=== PATIENT | female | born 1950 | race Caucasian/White ===

== ENCOUNTER 2016-08-29 16:57 | Emergency (ER) | payer OTHER ==
[~2016-08-29] VITALS: Ht 162.6 cm; Wt 75.0 kg
[~2016-08-29 16:57] MED LIST: CALCIUM + D 6001 TA1 PO; EPA1000 MG PO; HCTZ 25MG25 MG PO; LIPITOR80 MG PO; MOTRIN800 MG PO; NORCO 325 MG-51 TAB PO; POTASSIUM CH2 MEQ/ML PO; PRIL40 PO; SYNTHROID0.112 MG/T PO; TOPROL XL 50MG50 MG PO; VIT B; [UNRECOGNIZED DRUG - OTHER]
[2016-08-29 17:06] VITALS: BP 162/84; PULSE 75; TEMP 98.2
[2016-08-29] MEDS ORDERED: CEPHALEXIN500 M1 PO (18:35)
[2016-08-29] MEDS ORDERED: CLARITIN 1010 MG/TAB PO (18:58)
[2016-08-29] MEDS ORDERED: MELATONIN0.3 MG (19:00)
[2016-08-29] MEDS ORDERED: CARDIZEM CD 18180 MG PO (19:01)
[2016-08-29] MEDS ORDERED: CRESTOR20 MG PO (19:02)
== END 2016-08-29 18:50 | disposition home or self-care (01) ==
LOC: COL.ER 16:57
DX: L76.32 Postprocedural hematoma of skin and subcutaneous tissue following other procedure (principal); I10 Essential (primary) hypertension

== ENCOUNTER → 2016-10-08 | Outpatient (CLI) | payer OTHER ==
[~2016-10-08] MED LIST changes: +CARDIZEM CD 18180 MG PO; +CEPHALEXIN500 M1 PO; +CLARITIN 1010 MG/TAB PO; +CRESTOR20 MG PO; +MELATONIN0.3 MG
== END ==
LOC: ZCOL.LAB 15:52
DX: D17.1 Benign lipomatous neoplasm of skin and subcutaneous tissue of trunk (principal)

== ENCOUNTER → 2016-10-20 | Outpatient (CLI) | payer OTHER | LOC: MC.RAD 14:40 | DX: Z12.31 Encounter for screening mammogram for malignant neoplasm of breast (principal) ==

== ENCOUNTER → 2017-10-29 | Outpatient (CLI) | payer MEDICARE | LOC: MC.RAD 10:54 | DX: Z12.31 Encounter for screening mammogram for malignant neoplasm of breast (principal) ==

== ENCOUNTER 2018-06-29 17:01 | Emergency (ER) | payer MEDICARE ==
[~2018-06-29] VITALS: Ht 162.6 cm; Wt 76.4 kg
[2018-06-29 17:09] VITALS: TEMP 98.5
[2018-06-29 17:36] LABS: COLLECTION METHOD CLEAN CATCH
[2018-06-29 17:49] LABS: MUCOUS Present /lpf; PH 5 (5-8); SQUAMOUS EPITHELIAL 0-2 /hpf; URINE APPEARANCE Clear; URINE BACTERIA None Seen /hpf; URINE BILIRUBIN Negative (NEGATIVE); URINE BLOOD Negative (NEGATIVE); URINE COLOR Straw; URINE GLUCOSE Negative (NEGATIVE); URINE KETONE Negative (NEGATIVE); URINE LEUKOCYTE ESTERASE Negative (NEGATIVE); URINE NITRATE Negative (NEGATIVE); URINE PROTEIN(semi-quant) Negative (NEGATIVE); URINE RBC 0-2 /hpf; URINE UROBILINOGEN Negative (NEGATIVE)
[2018-06-29 18:07] LABS: BASO # 0.1 (0.0-0.2); BASO % 0.7 % (0.0-2.0); EOS # 0.2 (0.0-0.7); EOS % 2.4 % (0-4.0); GRAN # 5.3 (1.4-6.5); GRAN % 69.5 % (42.2-75.2); HEMATOCRIT 41.1 % (37.0-47.0); LYMPH # 1.6 (1.2-3.4); LYMPH % 21.7 % (20.0-51.0); MEAN CELL VOLUME 99 fl (80.0-100.0); MEAN CORPUSCULAR HEMOGLOBIN 34 pg (27.0-31.0); MEAN CORPUSCULAR HGB CONC 34 g/dl (33.0-37.0); MEAN PLATELET VOLUME 9.8 fl (7.4-10.4); MONO # 0.4 (0.1-0.6); MONO % 5.4 % (1.7-9.3); PLATELET COUNT 264 K/mm3 (130-400); RED BLOOD COUNT 4.17 M/mm3 (4.10-5.30); REDCELL DISTRIBUTION WIDTH-CV 11.7 % (11.5-14.5)
[2018-06-29 18:18] LABS: ALANINE AMINOTRANSFERASE 30 U/L (9-52); ALBUMIN 4.4 gm/dL (3.5-5.0); ALKALINE PHOSPHATASE 103 U/L (50-136); ANION GAP 13 mmol/L (7-16); AST,SGOT 27 U/L (15-37); BILIRUBIN,TOTAL 0.4 mg/dL (0.0-1.0); BLOOD UREA NITROGEN 24 mg/dL (7-17); CALCIUM 9.8 mg/dL (8.4-10.2); CARBON DIOXIDE 26 mmol/L (22-30); CHLORIDE 101 mmol/L (98-107); CREATININE, serum 0.71 (0.52-1.25); GLUCOSE 208 mg/dL (74-106); LIPASE 88 U/L (23-300); POTASSIUM 3.3 mmol/L (3.4-5.0); SODIUM 140 mmol/L (137-145); TOTAL PROTEIN 7.4 gm/dL (6.4-8.2)
[2018-06-29 18:19] LABS: C-REACTIVE PROTEIN < 0.5 mg/dL (0.0-0.9)
[2018-06-29] MEDS ORDERED: ZOFRAN 4MG T4 MG/TAB PO (19:30)
[2018-06-29] MEDS ORDERED: NORCO 325 MG-51 TAB PO (19:30)
[2018-06-29 19:58] VITALS: BP 161/91; PULSE 68
== END 2018-06-29 20:25 | disposition home or self-care (01) ==
LOC: COL.ER 17:01
PROVIDERS: Emergency Medicine
DX: N23 Unspecified renal colic (principal); I10 Essential (primary) hypertension; E78.5 Hyperlipidemia, unspecified; Z90.710 Acquired absence of both cervix and uterus
CPT/HCPCS: J2405; J3010; J7030; Q9967

== ENCOUNTER → 2018-10-31 | Outpatient (CLI) | payer MEDICARE ==
[~2018-10-31] MED LIST changes: +ZOFRAN 4MG T4 MG/TAB PO
== END ==
LOC: MC.RAD 10:27
DX: Z12.31 Encounter for screening mammogram for malignant neoplasm of breast (principal); N63.21 Unspecified lump in the left breast, upper outer quadrant

== ENCOUNTER → 2018-11-03 | Outpatient (CLI) | payer MEDICARE | LOC: MC.RAD 09:53 | DX: N60.02 Solitary cyst of left breast (principal) ==

== ENCOUNTER → 2019-11-07 | Outpatient (CLI) | payer MEDICARE | LOC: MC.RAD 13:08 | DX: Z12.31 Encounter for screening mammogram for malignant neoplasm of breast (principal) ==

== ENCOUNTER → 2020-11-07 | Outpatient (CLI) | payer MEDICARE | LOC: MC.RAD 09:00 | DX: Z12.31 Encounter for screening mammogram for malignant neoplasm of breast (principal) ==

== ENCOUNTER → 2021-11-18 | Outpatient (CLI) | payer MEDICARE | LOC: MC.RAD 10:40 | DX: Z12.31 Encounter for screening mammogram for malignant neoplasm of breast (principal) ==